=== PATIENT | male | born 1950 | race Caucasian/White ===

== ENCOUNTER 2016-11-11 11:00 | Day surgery (SDC) | payer OTHER ==
[2016-11-10 11:51] VITALS: BMI 23.7
[2016-11-11 12:16] VITALS: TEMP 98
[2016-11-11] MEDS ORDERED: LACTATED RINGERS 1,000 ML IV ONE (12:26)
[2016-11-11] MEDS ORDERED: LIDOCAINE 1% 20 ML VIAL (10MG/ML) FOR IV START INTRADERMA ONE (12:27)
[2016-11-11] MEDS ORDERED: LIDOCAINE 1% INJ 10MG/ML (20 ML MDV) ONE (13:19)
[2016-11-11] MEDS ORDERED: PROPOFOL 10 MG/ML 20 ML VIAL IV ONE (13:19)
--- NOTE | 2016-11-11 13:53 | P.PCN ---
Date of Procedure: 11/11/16 Preoperative Diagnosis: Postoperative Diagnosis: Procedure(s) Performed: Procedure: Total colonoscopy. Preoperative diagnosis: Screening for neoplasia. Postoperative diagnosis: Sigmoid diverticulosis with no evidence of acute diverticulitis, strictures, polyps or cancer. Preparation: HalfLytely prep. Sedation: Was provided by anesthesia. Brief clinical history: The patient is a 66-year-old male who is referred for this evaluation for screening for neoplasia age being his risk factor. He has no abdominal complaints, bleeding or anemia or family history of colon cancer. This would be his first colonoscopy. Procedure: With the patient on his left lateral decubitus position and after informed consent and adequate sedation, the perianal area was inspected and it did not show any fissures or fistulas. There were no masses felt on digital rectal examination. The Olympus CFQ 160L video colonoscope was then inserted in the rectum in the usual fashion and advanced to the cecum. The mucosa appeared healthy. Few diverticular orifices were seen scattered in the sigmoid but there was no evidence of acute diverticulitis or strictures. No polyps or tumors were seen. I retroflexed endoscope in the rectum before the endoscope was withdrawn. The patient tolerated the procedure well. Plan: The patient was reassured. Discussed dietary measures. He will follow up with you as planned. In the absence of family history of colon cancer and finding polyps today, I am recommending repeat exam in 10 years. Implants: Indications for Procedure: Operative Findings: Description of Procedure:
[2016-11-11 14:32] VITALS: BP 184/67; PULSE 58; RESP 16
== END 2016-11-11 14:30 | disposition home or self-care (01) ==
LOC: ORWHC2ENDO 11:00
DX: Z12.11 Encounter for screening for malignant neoplasm of colon (principal); K57.30 Diverticulosis of large intestine without perforation or abscess without bleeding; K21.9 Gastro-esophageal reflux disease without esophagitis; F17.200 Nicotine dependence, unspecified, uncomplicated
CPT/HCPCS: J2001; J2704; G0121; 45378

== ENCOUNTER 2017-10-30 21:53 | Emergency (ER) | payer MEDICARE, OTHER ==
[2017-10-30 21:59] VITALS: BP 137/82; PULSE 80; RESP 20; TEMP 98.3
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
[2017-10-30] MEDS ORDERED: DIPH,PERTUS(ACELL)TETVAC-LF 0.5 ML VIAL IM ONE (22:42)
== END 2017-10-30 23:26 | disposition home or self-care (01) ==
LOC: EC 21:53
DX: S01.01XA Laceration without foreign body of scalp, initial encounter (principal); S80.211A Abrasion, right knee, initial encounter; S80.212A Abrasion, left knee, initial encounter; S60.812A Abrasion of left wrist, initial encounter; M25.512 Pain in left shoulder; F17.200 Nicotine dependence, unspecified, uncomplicated; Z23 Encounter for immunization; Y04.0XXA Assault by unarmed brawl or fight, initial encounter
CPT/HCPCS: 12001; 70450; 72125; 90471; 90715; 99284

== ENCOUNTER 2020-01-10 17:50 | Inpatient (IN) | payer MEDICARE, OTHER ==
[2020-01-10] MEDS ORDERED: RX INFO: IV CONTRAST WAS GIVEN 1 EACH MISC MISCELLANE PRN (18:10)
[2020-01-10] MEDS ORDERED: SODIUM CHLORIDE 0.9% 1,000 ML IV STA (18:13)
[2020-01-10] MEDS ORDERED: SODIUM CHLORIDE 0.9% 500 ML 500 ML IV STA (18:13)
--- NOTE | 2020-01-10 18:19 | ED ---
ENT HPI - General Chief complaint: ENT Stated complaint: tongue pain Time Seen by Provider: 01/10/20 18:00 Source: patient, RN notes reviewed Mode of arrival: ambulatory Limitations: no limitations - History of Present Illness Initial comments: This is a 9-year-old male with history of smoking states he had the onset of a weight lesion to his tongue about 6 months ago he was told to follow-up with the weight lesion when away but his tongue has slowly been eroding away he states over the past 6 months. He presents today for evaluation he complains of a headache steady weight loss some generalized weakness no fevers chills sweats no overt cough no other modifying factors. He does state he was unable follow-up due to the pandemic. - Related Data Home Medications Medication Instructions Recorded Confirmed Multivitamins, Thera [Multivitamin 1 tab PO DAILY 11/10/16 11/10/16 (formulary)] Allergies Allergy/AdvReac Type Severity Reaction Status Date / Time No Known Allergies Allergy Verified 01/10/20 17:59 Review of Systems ROS Statement: Those systems with pertinent positive or pertinent negative responses have been documented in the HPI. ROS Other: All systems not noted in ROS Statement are negative. Past Medical History Past Medical History: GERD/Reflux History of Any Multi-Drug Resistant Organisms: None Reported Past Surgical History: Orthopedic Surgery Additional Past Surgical History / Comment(s): left shoulder surgery, Past Anesthesia/Blood Transfusion Reactions: No Reported Reaction Past Psychological History: No Psychological Hx Reported Smoking Status: Current every day smoker Past Alcohol Use History: Daily Past Drug Use History: Marijuana - Past Family History Mother Family Medical History: No Reported History General Exam - General Exam Comments Initial Comments: This a well-developed asthenic appearing male was awake alert oriented 3 Limitations: no limitations General appearance: alert, in no apparent distress, anxious Head exam: Present: atraumatic, normocephalic, normal inspection Eye exam: Present: normal appearance, PERRL, EOMI. Absent: scleral icterus, conjunctival injection, periorbital swelling ENT exam: Present: mucous membranes moist, other (Examination of the tongue reveals evidence of erosion of the tongue in the right side approximately 25% to the mid anterior portion of the right side. Some white plaque is noted. No active bleeding) Neck exam: Present: normal inspection, full ROM, other (No stridor JVD or bruits no overt lymphadenopathy at this time.). Absent: tenderness, meningismus, lymphadenopathy Respiratory exam: Present: normal lung sounds bilaterally. Absent: respiratory distress, wheezes, rales, rhonchi, stridor Cardiovascular Exam: Present: regular rate, normal rhythm, normal heart sounds. Absent: systolic murmur, diastolic murmur, rubs, gallop, clicks GI/Abdominal exam: Present: soft, normal bowel sounds. Absent: distended, tende rness, guarding, rebound, rigid Extremities exam: Present: normal inspection, full ROM, normal capillary refill. Absent: tenderness, pedal edema, joint swelling, calf tenderness Back exam: Present: normal inspection Neurological exam: Present: alert, oriented X3, CN II-XII intact Psychiatric exam: Present: normal affect, normal mood Skin exam: Present: warm, dry, intact, normal color. Absent: rash Course Vital Signs 01/10/20 01/10/20 17:56 18:59 Temperature 98.6 F Pulse Rate 97 74 Respiratory 18 18 Rate Blood Pressure 136/75 117/72 O2 Sat by Pulse 99 100 Oximetry Medical Decision Making - Medical Decision Making I did discuss findings with patient and after discussion patient has had excessive weight loss failure to thrive decrease oral intake. He will be admitted for patient evaluation and hydration and ENT referral. I did discuss the case with Dr. Flores - Lab Data Result diagrams: 01/10/20 18:24 01/10/20 18:24 Lab Results 01/10/20 01/10/20 01/10/20 Range/Units 18:24 18:24 18:24 WBC 7.4 (3.8-10.6) k/uL RBC 4.42 (4.30-5.90) m/uL Hgb 14.9 (13.0-17.5) gm/dL Hct 44.4 (39.0-53.0) % MCV 100.4 H (80.0-100.0) fL MCH 33.8 (25.0-35.0) pg MCHC 33.7 (31.0-37.0) g/dL RDW 13.1 (11.5-15.5) % Plt Count 297 (150-450) k/uL Neutrophils % 62 % Lymphocytes % 26 % Monocytes % 7 % Eosinophils % 2 % Basophils % 1 % Neutrophils # 4.6 (1.3-7.7) k/uL Lymphocytes # 2.0 (1.0-4.8) k/uL Monocytes # 0.5 (0-1.0) k/uL Eosinophils # 0.1 (0-0.7) k/uL Basophils # 0.1 (0-0.2) k/uL Sodium 130 L (137-145) mmol/L Potassium 4.3 (3.5-5.1) mmol/L Chloride 102 (98-107) mmol/L Carbon Dioxide 23 (22-30) mmol/L Anion Gap 5 mmol/L BUN 11 (9-20) mg/dL Creatinine 0.76 (0.66-1.25) mg/dL Est GFR (CKD-EPI)AfAm >90 (>60 ml/min/1.73 sqM) Est GFR (CKD-EPI)NonAf >90 (>60 ml/min/1.73 sqM) Glucose 87 (74-99) mg/dL Calcium 8.9 (8.4-10.2) mg/dL Magnesium 2.1 (1.6-2.3) mg/dL Total Bilirubin 0.7 (0.2-1.3) mg/dL AST 31 (17-59) U/L ALT 16 (4-49) U/L Alkaline Phosphatase 111 (38-126) U/L Creatine Kinase 40 L (55-170) U/L Troponin I <0.012 (0.000-0.034) ng/mL Total Protein 6.4 (6.3-8.2) g/dL Albumin 3.4 L (3.5-5.0) g/dL Urine Color Urine Appearance (Clear) Urine pH (5.0-8.0) Ur Specific [place] (1.001-1.035) Urine Protein (Negative) Urine Glucose (UA) (Negative) Urine Ketones (Negative) Urine Blood (Negative) Urine Nitrite (Negative) Urine Bilirubin (Negative) Urine Urobilinogen (<2.0) mg/dL Ur Leukocyte Esterase (Negative) Urine RBC (0-5) /hpf Urine WBC (0-5) /hpf Ur Squamous Epith Cells (0-4) /hpf Hyaline Casts (0-2) /lpf Urine Mucus (None) /hpf 01/10/20 Range/Units 18:24 WBC (3.8-10.6) k/uL RBC (4.30-5.90) m/uL Hgb (13.0-17.5) gm/dL Hct (39.0-53.0) % MCV (80.0-100.0) fL MCH (25.0-35.0) pg MCHC (31.0-37.0) g/dL RDW (11.5-15.5) % Plt Count (150-450) k/uL Neutrophils % % Lymphocytes % % Monocytes % % Eosinophils % % Basophils % % Neutrophils # (1.3-7.7) k/uL Lymphocytes # (1.0-4.8) k/uL Monocytes # (0-1.0) k/uL Eosinophils # (0-0.7) k/uL Basophils # (0-0.2) k/uL Sodium (137-145) mmol/L Potassium (3.5-5.1) mmol/L Chloride (98-107) mmol/L Carbon Dioxide (22-30) mmol/L Anion Gap mmol/L BUN (9-20) mg/dL Creatinine (0.66-1.25) mg/dL Est GFR (CKD-EPI)AfAm (>60 ml/min/1.73 sqM) Est GFR (CKD-EPI)NonAf (>60 ml/min/1.73 sqM) Glucose (74-99) mg/dL Calcium (8.4-10.2) mg/dL Magnesium (1.6-2.3) mg/dL Total Bilirubin (0.2-1.3) mg/dL AST (17-59) U/L ALT (4-49) U/L Alkaline Phosphatase (38-126) U/L Creatine Kinase (55-170) U/L Troponin I (0.000-0.034) ng/mL Total Protein (6.3-8.2) g/dL Albumin (3.5-5.0) g/dL Urine Color Yellow Urine Appearance Cloudy (Clear) Urine pH 5.5 (5.0-8.0) Ur Specific [place] 1.020 (1.001-1.035) Urine Protein 1+ H (Negative) Urine Glucose (UA) Negative (Negative) Urine Ketones 1+ H (Negative) Urine Blood Negative (Negative) Urine Nitrite Negative (Negative) Urine Bilirubin Negative (Negative) Urine Urobilinogen <2.0 (<2.0) mg/dL Ur Leukocyte Esterase Negative (Negative) Urine RBC 1 (0-5) /hpf Urine WBC 4 (0-5) /hpf Ur Squamous Epith Cells <1 (0-4) /hpf Hyaline Casts 4 H (0-2) /lpf Urine Mucus Many H (None) /hpf - EKG Data -: EKG Interpreted by Me EKG shows normal: sinus rhythm EKG Comments: Sinus rhythm with PACs rate was 76 112 QRS duration 78 daily since QTC 368/[address]-T wave changes - Radiology Data Radiology results: report reviewed (I did review the imaging and report discuss case with radiologist. No definite acute findings or is a lymph node noted on the left side of the neck. Irregularity tongue is noted consistent over the report), image reviewed Disposition Clinical Impression: Tongue cancer, Failure to thrive in adult Disposition: ADMITTED IP TO THIS [facility] Condition: Fair Referrals: None,Stated [REFERRING] - 1-2 days
[2020-01-10 18:40] LABS: Basophils # (A) 0.1 k/uL (0-0.2); Basophils % (A) 1 %; Eosinophils # (A) 0.1 k/uL (0-0.7); Eosinophils % (A) 2 %; HCT 44.4 % (39.0-53.0); HGB 14.9 gm/dL (13.0-17.5); Lymphocytes % (A) 26 %; MCH 33.8 pg (25.0-35.0); MCHC 33.7 g/dL (31.0-37.0); MCV 100.4 fL (80.0-100.0); Mean Platelet Volume 7.5; Monocytes # (A) 0.5 k/uL (0-1.0); Monocytes % (A) 7 %; Neutrophils # (A) 4.6 k/uL (1.3-7.7); Neutrophils % (A) 62 %; Platelet Count 297 k/uL (150-450); RBC 4.42 m/uL (4.30-5.90); RDW 13.1 % (11.5-15.5); WBC 7.4 k/uL (3.8-10.6)
[2020-01-10 18:43] LABS: Appearance,Urine Cloudy (Clear); Bilirubin,Urine Negative (Negative); Blood,Urine Negative (Negative); Color,Urine Yellow; Glucose,Urine (UA) Negative (Negative); Hyaline Casts,Urine 4 /lpf (0-2); Ketones,Urine 1+ (Negative); Leukocyte Esterase,Urine Negative (Negative); Mucus,Urine Many /hpf; Nitrite,Urine Negative (Negative); PH, Urine 5.5 (5.0-8.0); Protein,Urine 1+ (Negative); RBC,Urine 1 /hpf (0-5); Squamous Epithelial Cell,Urine <1 /hpf (0-4); Urobilinogen,Urine <2.0 mg/dL (<2.0); WBC,Urine 4 /hpf (0-5)
--- NOTE | 2020-01-10 18:52 | XR ---
EXAMINATION TYPE: XR chest 2V DATE OF EXAM: 01/10/2020 COMPARISON: None INDICATION: Weight loss TECHNIQUE: Frontal and lateral views of the chest are obtained. FINDINGS: The heart size is normal. The pulmonary vasculature is normal. The lungs are clear. IMPRESSION: 1. No acute pulmonary process.
[2020-01-10 18:56] LABS: ALT 16 U/L (4-49); AST 31 U/L (17-59); African American GFR (CKD) >90 (>60 ml/min/1.73 sqM); Albumin 3.4 g/dL (3.5-5.0); Alkaline Phosphatase 111 U/L (38-126); Anion Gap 5 mmol/L; Blood Urea Nitrogen 11 mg/dL (9-20); Calcium 8.9 mg/dL (8.4-10.2); Carbon Dioxide 23 mmol/L (22-30); Chloride 102 mmol/L (98-107); Creatine Kinase 40 U/L (55-170); Glucose 87 mg/dL (74-99); Magnesium 2.1 mg/dL (1.6-2.3); Non-African American GFR(CKD) >90 (>60 ml/min/1.73 sqM); Potassium 4.3 mmol/L (3.5-5.1); Sodium 130 mmol/L (137-145); Total Bilirubin 0.7 mg/dL (0.2-1.3); Total Protein 6.4 g/dL (6.3-8.2)
--- NOTE | 2020-01-10 19:35 | CT ---
EXAMINATION TYPE: CT brain wo con DATE OF EXAM: 01/10/2020 COMPARISON: 10/30/2017 INDICATION: Tongue pain, numbness, erosion. DLP: 1105.2 mGycm, Automated exposure control for dose reduction was used. CONTRAST: None CT of the brain is performed utilizing 3 mm thick sections through the posterior fossa and 3 mm thick sections through the remaining calvarium. Study is performed within 24 hours of arrival to the hosp ital. No abnormal hyperdensity is present to suggest an acute intracranial hemorrhage. No mass lesion is evident. No acute infarcts are evident. Subcortical white matter changes are present within the parietal-occip ital regions this may be increasing on the left compared to 2018. There is a punctate density within the left centrum semiovale. This may have been present in retrospect in 2018. Punctate petechial hemo rrhage is less likely. Report was called to the emergency room physician by Dr. Woodard by telephone at the time of interpretation. Follow-up MRI can be performed as clinically indicated. Ventricles and sulci are appropriate for the patient age. Paranasal sinuses and mastoid air cells within the [id number] are clear. IMPRESSIONS: 1. Chronic appearing deep white matter hypodensities within the centrum semiovale posteriorly, prog ressive from 2018. Please see above discussion. Follow-up MRI can be performed as clinically indicate d.
--- NOTE | 2020-01-10 19:52 | CT ---
EXAMINATION TYPE: CT neck chest w con DATE OF EXAM: 01/10/2020 COMPARISON: 10/30/2017 HISTORY: Tongue pain. CT DLP: 539.5 mGycm CONTRAST: Patient injected with 100ml mL of Isovue 300. TECHNIQUE: Axial images at 3 mm thick sections. Reconstructed images in the coronal plane and sagitt al plane are reviewed. FINDINGS: Limited CT sections are obtained the lung apices. The lung apices appear clear. CT neck: The torus tubarius and fossa of Rosenmuller are normal. Lapidarist spaces are normal. Para nasal sinuses and mastoid air cells are clear. Parotid glands appear normal and symmetrical. Submandibular glands, are normal. Parapharyngeal spac es are normal. There is a 1.0 cm left submandibular lymph node present. Submental space appears norm al. The hypopharynx appears within normal limits. Subtle asymmetry of the tonsillar pillars may be presen t with slightly more focal left tonsillar pillar within the right. No discrete underlying mass is ricky dent. The tongue may has some asymmetric density without discrete mass. There may be some slight incr eased density along the anterior right margin of the tongue adjacent to the mandible. Vocal cord level appear symmetrical. Thyroid as visualized is normal. Osseous structures are normal. Mandible appears intact but a dentulous. Maxilla appears intact. IMPRESSIONS: 1. Patient's reported tongue ulceration not clearly identified. There may be some subtle asymmetry un julissa the tongue and the anterior right tongue base. Direct visualization of this area is recommended. Subtle asymmetry of the tonsillar pillars with some fullness on the left compared to the right may be present without obvious underlying mass. 2. There is an enlarged left submandibular lymph node at 1.0 cm. EXAMINATION TYPE: CT neck chest w con DATE OF EXAM: 01/10/2020 COMPARISON: None HISTORY: Tongue pain. CT DLP: 539.5 mGycm, Automated exposure control for dose reduction was used. CONTRAST: Performed injected with 100ml mL of Isovue 300. TECHNIQUE: Axial images were obtained at 5 mm thick sections. Reconstructed images are reviewed [facility] in the coronal plane. FINDINGS: Portion of the thyroid visualized is normal. Vocal cord level is symmetrical. No suspicious lung nodules or focal infiltrates are present. There is moderate fatty infiltration of the liver. Adrenal glands appear normal. Ossification is with in the spleen likely is a granuloma. Upper abdomen is visualized appears within normal limits. No enlarged mediastinal or hilar adenopathy is evident. The ascending aorta diameter at the level o f the main pulmonary artery is 3.9 cm. The main pulmonary artery diameter at the bifurcation is 3.1 cm. Coronary artery calcification is present. IMPRESSIONS: 1. No acute abnormality CT chest. 2. Moderate fatty infiltration liver within the [id number]
[2020-01-10] MEDS ORDERED: NALOXONE 0.4 MG/ML 1 ML VIAL IV PRN (20:22)
[2020-01-10] MEDS ORDERED: NICOTINE 21MG/24HR PATCH TRANSDERM STA (20:24)
[2020-01-10] MEDS: SODIUM CHLORIDE 0.9% 1,000 ML IV SCH (21:41)
[2020-01-10] MEDS: HYDROmorphone 0.5 MG/0.5 ML SYRINGE IVP PRN (23:12)
[2020-01-11] MEDS: HYDROmorphone 0.5 MG/0.5 ML SYRINGE IVP PRN ×4 (06:29→20:22)
[2020-01-11] MEDS: SODIUM CHLORIDE 0.9% 1,000 ML IV SCH ×3 (06:32→20:41)
[2020-01-11] MEDS: MULTIVITAMINS, THERA 1 EACH TAB PO SCH (07:28)
--- NOTE | 2020-01-11 09:08 | P.HPIM ---
History of Present Illness H&P Date: 01/11/20 Ahsan Crum, is a 69-year-old male who presented to [facility] emergency room with a chief complaint of large ulcer on his tongue with pain and difficulty eating and difficulty with his speech. Patient stated that about a year ago he had a white lesion on the right side of his tongue his primary care physician referred him to an ENT physician in [place], who told him to follow-up with him in 6 months, patient never followed up because he was afraid of Covid 19 exposure, his condition continued to worsen he has a large erosion on the right side of his tongue, he was complaining of pain in his mouth and headache and neck pain and decided to come to emergency room. Patient has a known history of smoking he smokes 1 pack per day, he also drinks up to 12 beers per day. His past medical history is significant for gastroesophageal reflux disease and left shoulder surgery no other history could be elicited. He states that he used to smoke marijuana in the past. On review of systems patient is alert and oriented in no apparent distress, he is complaining of pain in his mouth and his neck he also has a headache, otherwise he denies any complaints, there is no fever or chills no dizziness, no chest pain no shortness of breath no cough, no nausea or vomiting no abdominal pain no diarrhea, no blood in the stools, no burning with urination no frequency or urgency and no hematuria. Past Medical History Past Medical History: GERD/Reflux History of Any Multi-Drug Resistant Organisms: None Reported Past Surgical History: Orthopedic Surgery Additional Past Surgical History / Comment(s): left shoulder surgery, Past Anesthesia/Blood Transfusion Reactions: No Reported Reaction Past Psychological History: No Psychological Hx Reported Smoking Status: Current every day smoker Past Alcohol Use History: Daily Additional Past Alcohol Use History / Comment(s): smokes 1 PPD since age 22 Past Drug Use History: Marijuana - Past Family History Mother Family Medical History: No Reported History Medications and Allergies Home Medications Medication Instructions Recorded Confirmed Type Ibuprofen [Motrin Ib] 800 mg PO ONCE PRN 01/10/20 01/10/20 History Allergies Allergy/AdvReac Type Severity Reaction Status Date / Time No Known Allergies Allergy Verified 01/10/20 20:42 Physical Exam Vitals: Vital Signs Temp Pulse Pulse Resp BP BP Pulse Ox 01/11/20 07:30 98.4 F 79 16 126/78 99 01/11/20 03:00 98.5 F 72 16 131/91 97 01/10/20 21:20 98.6 F 81 16 99 01/10/20 21:10 98.5 F 79 18 127/75 97 01/10/20 20:24 98.5 F 72 19 125/81 98 01/10/20 18:59 74 18 117/72 100 01/10/20 17:56 98.6 F 97 18 136/75 99 Intake and Output 01/10/20 01/11/20 01/11/20 22:59 06:59 14:59 Intake Total 480 Balance 480 Intake: Oral 480 Other: Voiding Method Toilet # Voids 1 1 Weight 58.967 kg In general patient is alert and oriented 3 HEENT there is a large erosion on the right side of the tongue, there is some white plaque on the side of the tongue Neck is supple no JVD no goiter no lymphadenopathy Chest exam reveals a few scattered rhonchi bilaterally no wheezing Cardiac exam reveals regular heart sounds S1 and S2 no gallops no murmurs Abdomen is soft nontender no organomegaly with normal bowel sounds Extremity exam reveals no edema no cyanosis or clubbing Neurological examination reveals no gross focal deficit Results CBC & Chem 7: 01/10/20 18:24 01/10/20 18:24 Labs: Abnormal Lab Results - Last 24 Hours (Table) 01/10/20 01/10/20 01/10/20 Range/Units 18:24 18:24 18:24 MCV 100.4 H (80.0-100.0) fL Sodium 130 L (137-145) mmol/L Creatine Kinase 40 L (55-170) U/L Albumin 3.4 L (3.5-5.0) g/dL Urine Protein 1+ H (Negative) Urine Ketones 1+ H (Negative) Hyaline Casts 4 H (0-2) /lpf Urine Mucus Many H (None) /hpf Thrombosis Risk Factor Assmnt - Choose All That Apply Each Risk Factor Represents 2 Points: Age 61-74 years Other congenital or acquired thrombophilia - If yes, enter type in comment: No Thrombosis Risk Factor Assessment Total Risk Factor Score: 2 Thrombosis Risk Factor Assessment Level: Low Risk Assessment and Plan Plan: 1. Large ulcerative erosion on the right side of the tongue, ENT consult requested. For possible biopsy. Oncology consultation requested. 2. Underlying history of tobacco use patient counseled in length to quit smoking 3. Underlying history of gastroesophageal reflux disease, will start Protonix 40 mg by mouth daily 4. Underlying history of daily alcohol use up to 12 packs of beer, patient will be started on C1 protocol he was counseled in regard to decreasing alcohol use Awaiting ENT and oncology input Will follow closely
[2020-01-11 11:10] VITALS: BMI 17.6
--- NOTE | 2020-01-11 12:53 | P.CONS ---
History of Present Illness - Reason for Consult Consult date: 01/11/20 Head and neck cancer Requesting physician: Sean Flores - Chief Complaint Difficulty eating and painful sore in mouth - History of Present Illness Mr. Crum is a 69 year old mail who presented to hospital ER with complaints of large ulcerated area on his tongue which is causing difficulty eating and now with his speech. Complaints of pain in mouth are also associated. He apparently first noted lesion a year ago and was suppose to follow back with ENT however due to COVID pandemic he did not. He is an active smoker (approx 1 ppd) and daily alcohol use (approx 12-14 beers per day). He also uses marijuana cigarettes on occasions (history of daily use). His tongue shows erosion of the right side approximately 2/3 to the mid anterior portion of the right side. The concern of underlying malignancy was the reason for oncology consultation to further evaluate. Review of CT scan did not reveal any definitive abnormal lymph nodes or masses. Review of Systems All systems: negative (HPI) Past Medical History Past Medical History: GERD/Reflux History of Any Multi-Drug Resistant Organisms: None Reported Past Surgical History: Orthopedic Surgery Additional Past Surgical History / Comment(s): left shoulder surgery, Past Anesthesia/Blood Transfusion Reactions: No Reported Reaction Past Psychological History: No Psychological Hx Reported Smoking Status: Current every day smoker Past Alcohol Use History: Daily Additional Past Alcohol Use History / Comment(s): smokes 1 PPD since age 22 Past Drug Use History: Marijuana - Past Family History Mother Family Medical History: No Reported History Medications and Allergies Home Medications Medication Instructions Recorded Confirmed Type Ibuprofen [Motrin Ib] 800 mg PO ONCE PRN 01/10/20 01/10/20 History Allergies Allergy/AdvReac Type Severity Reaction Status Date / Time No Known Allergies Allergy Verified 01/10/20 20:42 Physical Exam Vitals: Vital Signs Temp Pulse Pulse Resp BP BP Pulse Ox 01/11/20 07:30 98.4 F 79 16 126/78 99 01/11/20 03:00 98.5 F 72 16 131/91 97 01/10/20 21:20 98.6 F 81 16 99 01/10/20 21:10 98.5 F 79 18 127/75 97 01/10/20 20:24 98.5 F 72 19 125/81 98 01/10/20 18:59 74 18 117/72 100 01/10/20 17:56 98.6 F 97 18 136/75 99 Intake and Output 01/10/20 01/11/20 01/11/20 22:59 06:59 14:59 Intake Total 480 Balance 480 Intake: Oral 480 Other: Voiding Method Toilet # Voids 1 1 Weight 58.967 kg 58.967 kg - Constitutional General appearance: cooperative, no acute distress - EENT 2/3 white ulceration of tongue, stemming from middle to anterior portion of the right side. Eyes: EOMI, poor dentition ENT: NA/AT Results CBC & Chem 7: 01/10/20 18:24 01/10/20 18:24 Labs: Abnormal Lab Results - Last 24 Hours (Table) 01/10/20 01/10/20 01/10/20 Range/Units 18:24 18:24 18:24 MCV 100.4 H (80.0-100.0) fL Sodium 130 L (137-145) mmol/L Creatine Kinase 40 L (55-170) U/L Albumin 3.4 L (3.5-5.0) g/dL Urine Protein 1+ H (Negative) Urine Ketones 1+ H (Negative) Hyaline Casts 4 H (0-2) /lpf Urine Mucus Many H (None) /hpf Chest x-ray: report reviewed CT Scan - head: report reviewed Assessment and Plan (1) Tongue ulceration Current Visit: Yes Status: Acute Code(s): K14.0 - GLOSSITIS SNOMED Code(s): 47608740 Plan: Assessment and Recommendations: 1. Large Right sided Anterior Ulceration to Tongue: - Oncology consulted for concern of underlying malignancy - Will need tissue biopsy proven to confirm diagnosis - ENT is following, await ENT for tissue biopsy plan 2. Smoking and ETOH Cessation Plan: - Patient will need PET scan as outpatient, if no distant metastatic disease then surgery will be needed as primary intervention. then likely adjuvant chemotherapy. If metastatic disease is seen, then palliative chemotherapy. Will likely require tissue biopsy proven malignancy to acquire approval for PET. Physician Attest: I have completed the full history and physical and agree with above dictation, dictated as a scribe.
--- NOTE | 2020-01-11 18:50 | P.GSCN ---
History of Present Illness Consult date: 01/11/20 Reason for Consult: Tongue mass ulcerative, dysphagia, weight loss Requesting physician: Sean Flores History of present illness: This is a 69-year-old white male who presents to the emergency room with dysphagia and it was noted that he has a fairly large right tongue mass. He tells me that he first noted this about 2 years ago and was seen by his primary care physician in [facility] and later set up for an appointment in [facility] and saw Dr. Jose Angel Gutierrez. 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 He noted that this problem became substantially worse about 6 months ago and just drank alcohol to take away the pain.. He has a [id number] history of smoking. He also admits to drinking a 12 pack of beer every night. He has lost a significant amount of weight but he does not weigh himself so he cannot give me the exact amount of weight he has lost. He is able to swallow liquids but unable to swallow solid foods. His dysphagia has progressed over the last 6 months significantly. CAT scan was done demonstrating metastatic disease to the neck. Review of Systems - Constitutional Reports lethargy, Reports weakness, Reports weight loss, Denies chronic headaches - EENT Eyes: denies blurred vision, denies bulging eye, denies decreased vision Ears, nose, mouth and throat: Reports dysphagia, Reports odynophagia, Reports swelling in mouth - Cardiovascular Denies claudication - Respiratory Denies congestion - Gastrointestinal Denies bloating - Genitourinary Denies kidney stones - Musculoskeletal Denies fractures - Integumentary Denies color changes - Neurological Denies ataxia - Psychiatric Denies anxiety attacks - Endocrine Reports fatigue, Denies excessive thirst - Hematologic/Lymphatic Denies easy bleeding - Allergic/Immunologic Denies allergic rhinitis, Denies anaphylaxis Past Medical History Past Medical History: GERD/Reflux History of Any Multi-Drug Resistant Organisms: None Reported Past Surgical History: Orthopedic Surgery Additional Past Surgical History / Comment(s): left shoulder surgery, Past Anesthesia/Blood Transfusion Reactions: No Reported Reaction Past Psychological History: No Psychological Hx Reported Smoking Status: Current every day smoker Past Alcohol Use History: Daily Additional Past Alcohol Use History / Comment(s): smokes 1 PPD since age 22 Past Drug Use History: Marijuana - Past Family History Mother Family Medical History: No Reported History Medications and Allergies Home Medications Medication Instructions Recorded Confirmed Type Ibuprofen [Motrin Ib] 800 mg PO ONCE PRN 01/10/20 01/10/20 History Allergies Allergy/AdvReac Type Severity Reaction Status Date / Time No Known Allergies Allergy Verified 01/10/20 20:42 Surgical - Exam Osteopathic Statement: *. No significant issues noted on an osteopathic structural exam other than those noted in the History and Physical/Consult. Vital Signs Temp Pulse Resp BP Pulse Ox 98.6 F 97 18 136/75 99 01/10/20 17:56 01/10/20 17:56 01/10/20 17:56 01/10/20 17:56 01/10/20 17:56 - General no distress, moderate pain, cachectic - Eyes PERRL, normal ocular movement - ENT Head is normocephalic the face is symmetric there's no abnormal movements is no tenderness to the sinuses are mastoids. There are no tumors, nodules on the scalp. Auricles are well-formed canals are clear the tympanic members are without bulging or retraction. Nose is patent. Mouth and throat patient has a large 3-4 cm ulcerative mass of the right anterior aspect of the tongue with extension to the floor the mouth. The tongue is deformed with a split along the right lateral anterior aspect. Neck shows some cervical lymphadenopathy. See CAT scan normal pinna, normal nares - Respiratory normal expansion - Cardiovascular Rhythm: regular - Integumentary no rash - Neurologic normal coordination, normal sensation, no memory loss - Musculoskeletal normal gait, normal posture - Psychiatric oriented to time, oriented to person, oriented to place, speech is normal, memory intact, other (Patient's speech is intelligible although altered because of the tongue mass.) Results - Labs 01/10/20 18:24 01/10/20 18:24 Abnormal Lab Results - Last 24 Hours (Table) 01/10/20 01/10/20 01/10/20 Range/Units 18:24 18:24 18:24 MCV 100.4 H (80.0-100.0) fL Sodium 130 L (137-145) mmol/L Creatine Kinase 40 L (55-170) U/L Albumin 3.4 L (3.5-5.0) g/dL Urine Protein 1+ H (Negative) Urine Ketones 1+ H (Negative) Hyaline Casts 4 H (0-2) /lpf Urine Mucus Many H (None) /hpf Diabetes panel 01/10/20 Range/Units 18:24 Sodium 130 L (137-145) mmol/L Potassium 4.3 (3.5-5.1) mmol/L Chloride 102 (98-107) mmol/L Carbon Dioxide 23 (22-30) mmol/L BUN 11 (9-20) mg/dL Creatinine 0.76 (0.66-1.25) mg/dL Glucose 87 (74-99) mg/dL Calcium 8.9 (8.4-10.2) mg/dL AST 31 (17-59) U/L ALT 16 (4-49) U/L Alkaline Phosphatase 111 (38-126) U/L Total Protein 6.4 (6.3-8.2) g/dL Albumin 3.4 L (3.5-5.0) g/dL Calcium panel 01/10/20 Range/Units 18:24 Calcium 8.9 (8.4-10.2) mg/dL Albumin 3.4 L (3.5-5.0) g/dL Pituitary panel 01/10/20 Range/Units 18:24 Sodium 130 L (137-145) mmol/L Potassium 4.3 (3.5-5.1) mmol/L Chloride 102 (98-107) mmol/L Carbon Dioxide 23 (22-30) mmol/L BUN 11 (9-20) mg/dL Creatinine 0.76 (0.66-1.25) mg/dL Glucose 87 (74-99) mg/dL Calcium 8.9 (8.4-10.2) mg/dL Adrenal panel 01/10/20 Range/Units 18:24 Sodium 130 L (137-145) mmol/L Potassium 4.3 (3.5-5.1) mmol/L Chloride 102 (98-107) mmol/L Carbon Dioxide 23 (22-30) mmol/L BUN 11 (9-20) mg/dL Creatinine 0.76 (0.66-1.25) mg/dL Glucose 87 (74-99) mg/dL Calcium 8.9 (8.4-10.2) mg/dL Total Bilirubin 0.7 (0.2-1.3) mg/dL AST 31 (17-59) U/L ALT 16 (4-49) U/L Alkaline Phosphatase 111 (38-126) U/L Total Protein 6.4 (6.3-8.2) g/dL Albumin 3.4 L (3.5-5.0) g/dL Assessment and Plan (1) Dysphagia Current Visit: Yes Status: Acute Code(s): R13.10 - DYSPHAGIA, UNSPECIFIED SNOMED Code(s): 42713105 (2) Weight loss, non-intentional Current Visit: Yes Status: Acute Code(s): R63.4 - ABNORMAL WEIGHT LOSS SNOMED Code(s): 066610689 Plan: This patient has a large ulcerative mass of the right tongue with presumed metastatic disease to the neck. The patient is in need of a hemiglossectomy and neck dissection. Reconstruction with a free flap is likely needed. This patient has need for head and neck surgical oncologic care and a transfer to a tertiary care facility is recommended. I have spoken to Dr. James Hicksg he has accepted transfer to [facility]. I discussed this with the patient and he is in agreement for the transfer. Patient is stable. We will transfer without testing that was previously performed. Time with Patient: Greater than 30
[2020-01-12] MEDS: HYDROmorphone 0.5 MG/0.5 ML SYRINGE IVP PRN ×4 (00:30→09:05)
[2020-01-12] MEDS: SODIUM CHLORIDE 0.9% 1,000 ML IV SCH (06:14)
[2020-01-12 08:56] VITALS: BP 121/64; PULSE 82; RESP 16; TEMP 98.2
[2020-01-12] MEDS: MULTIVITAMINS, THERA 1 EACH TAB PO SCH (09:05)
--- NOTE | 2020-01-12 09:29 | P.DS ---
Providers Date of admission: 01/10/20 20:22 Expected date of discharge: 01/12/20 Attending physician: Sean Flores Consults: 01/10/20 20:23 Consult Physician Routine Consulting Provider: Chalino Billy Consult Reason/Comments: Tongue lesion rule out carcinoma Do you want consulting provider notified?: Yes 01/11/20 08:43 Consult Physician Routine Consulting Provider: Randal Armendariz Consult Reason/Comments: head and neck cancer Do you want consulting provider notified?: Yes Primary care physician: Juan Martinez [facility] Course: Diagnosis on discharge: 1. Large ulcerative erosion on the right side of the tongue, ENT consult requested. For possible biopsy. Oncology consultation requested. 2. Underlying history of tobacco use patient counseled in length to quit smoking 3. Underlying history of gastroesophageal reflux disease, will start Protonix 40 mg by mouth daily 4. Underlying history of daily alcohol use up to 12 packs of beer, patient will be started on C1 protocol he was counseled in regard to decreasing alcohol use Hospital course: Ahsan Crum, is a 69-year-old male who presented to [facility] emergency room with a chief complaint of large ulcer on his tongue with pain and difficulty eating and difficulty with his speech. Patient stated that about a year ago he had a white lesion on the right side of his tongue his primary care physician referred him to an ENT physician in [place], who told him to follow-up with him in 6 months, patient never followed up because he was afraid of Covid 19 exposure, his condition continued to worsen he has a large erosion on the right side of his tongue, he was complaining of pain in his mouth and headache and neck pain and decided to come to emergency room. Patient has a known history of smoking he smokes 1 pack per day, he also drinks up to 12 beers per day. His past medical history is significant for gastroesophageal reflux disease and left shoulder surgery no other history could be elicited. He states that he used to smoke marijuana in the past. On review of systems patient is alert and oriented in no apparent distress, he is complaining of pain in his mouth and his neck he also has a headache, otherwise he denies any complaints, there is no fever or chills no dizziness, no chest pain no shortness of breath no cough, no nausea or vomiting no abdominal pain no diarrhea, no blood in the stools, no burning with urination no frequency or urgency and no hematuria. On 01/12/2020 patient was seen and examined on the medical floor, he was evaluated last night by Dr. Llamas, and his recommendation is to transfer patient to a tertiary care center for surgery on his oral cancer. Patient will be transferred today to [facility]. Patient Condition at Discharge: Fair Plan - Discharge Summary New Discharge Prescriptions: No Action Ibuprofen [Motrin Ib] 800 mg PO ONCE PRN PRN Reason: Pain Discharge Medication List Ibuprofen [Motrin Ib] 800 mg PO ONCE PRN 01/10/20 [History] Follow up Appointment(s)/Referral(s): None,Stated [REFERRING] - 1-2 days
== END 2020-01-12 11:31 | disposition short-term general hospital (02) | DRG 147 ==
LOC: EC 17:50 → 1SOBS 20:22 → OBSVTOIN 01-12 11:06
PROVIDERS: ADMIT Internal Medicine; ATTEND Internal Medicine
DX: C02.3 Malignant neoplasm of anterior two-thirds of tongue, part unspecified (principal); C79.89 Secondary malignant neoplasm of other specified sites; R62.7 Adult failure to thrive; R13.10 Dysphagia, unspecified; K21.9 Gastro-esophageal reflux disease without esophagitis; F17.210 Nicotine dependence, cigarettes, uncomplicated; F10.10 Alcohol abuse, uncomplicated
CPT/HCPCS: 36415; 70450; 70491; 71046; 71260; 80053; 81001; 82550; 83735; 84484; 85025; 93005; 96360; 96361; 99285

== ENCOUNTER → 2020-05-11 | Outpatient (CLI) | payer MEDICARE ==
--- NOTE | 2020-05-14 07:41 | PE ---
EXAMINATION TYPE: PET CT fusion skull to thigh DATE OF EXAM: 05/11/2020 COMPARISON: CT neck and chest January 10, 2020 HISTORY: Tongue cancer diagnosed January 2020 treated with surgery February. TECHNIQUE: Following the intravenous administration of 1224 2 mCi of F-18 FDG, whole body images are performed from the skull base to the midthigh. Images are reviewed on the computer in the coronal, axial, and sagittal planes. Reconstructed rotating images are created on independent workstation and reviewed on the computer. A localization and attenuation correction CT is performed in conjunction with the PET scan. Dedicated PET/CT imaging of the neck is performed. SCAN: Initial Scan FINDINGS: SKULL BASE AND NECK: Interval extensive surgical dissection with marked surgical change involving th e tongue base and the submandibular region. There is significant abnormal hypermetabolic soft tissue bilaterally left greater than right, left-sided tissue invades and destroys the inferior lateral aspe ct of the mandible. It measures roughly 8.0 cm AP diameter by 8.0 cm craniocaudal dimension, max SUV 11.86. There is additional abnormal soft tissue involving the mandibular symphysis with mandibular de struction axial image 48. The Max SUV is 7.68 at this level. Tracheostomy tube is in place inferior to this. CHEST, MEDIASTINUM, AND HILAR REGION: Pulmonary metastatic disease with multiple hypermetabolic nodul es, for reference right hilar roughly 1.9 cm nodule axial image 100, max SUV is 5.37 on image 97. ABDOMEN AND PELVIS: Suspicious hypermetabolic uptake involving the cecum and right colon should be co rrelated with colonoscopy. Normal excretion. OSSEOUS STRUCTURES: Destructive hypermetabolic osseous metastatic disease is present. For reference r ight pubic symphysis lesion image 230, max SUV is 7.12. There are old fracture deformities throughout the pelvis with ossific fusion of pubic symphysis. Lytic lesion left iliac bone noted for reference axial image 182, max SUV is 6.08. Additional multiple osseous metastatic lesions are present, for ref erence right medial scapular lesion axial image 60, max SUV is 6.65. OTHER CT: Moderate three-vessel coronary artery calcification. Small right pleural effusion. Bilatera l pelvic phleboliths. IMPRESSION: New diffuse metastatic disease. Diffuse pulmonary and osseous metastatic disease is prese nt. Cannot exclude right-sided colonic primary. Extensive local recurrence despite radical surgery in the neck.
== END | disposition home or self-care (01) ==
LOC: RADPETMAIN 14:37
PROVIDERS: ATTEND Internal Medicine Hematology & Oncology
DX: C76.0 Malignant neoplasm of head, face and neck (principal); C79.51 Secondary malignant neoplasm of bone; C78.00 Secondary malignant neoplasm of unspecified lung; Z98.890 Other specified postprocedural states
CPT/HCPCS: 78815; A9552